=== PATIENT | female | born 1980 | race Caucasian/White ===

== ENCOUNTER → 2017-06-16 | Outpatient (CLI) | payer MEDICAID | LOC: BRMIMAGING 08:49 | PROVIDERS: ATTEND Physician Assistant | DX: K80.20 Calculus of gallbladder without cholecystitis without obstruction (principal) | CPT/HCPCS: 76705-PO ==

== ENCOUNTER 2017-07-10 08:26 | Day surgery (SDC) | payer MEDICAID ==
--- NOTE | 2017-07-10 07:12 | PDHPUP ---
History & Physical Update H&P update statement: This history and physical update is based on an assessment of the patient which was completed after admission or registration (within 24 hours), but prior to the surgery/procedure. H&P update: H&P reviewed & patient examined, no change in patient's condition since H&P completed
[2017-07-10] MEDS ORDERED: LR 1,000 ML IV ONE (08:39)
[2017-07-10] MEDS ORDERED: LIDOCAINE 1% 2 ML INJ ID PRN (08:39)
[2017-07-10] MEDS ORDERED: ceFAZolin 2 GM/SWFI 2 GM/20 ML SYR IVP ONE (08:39)
[2017-07-10] MEDS ORDERED: MIDAZOLAM 2 MG/2 ML VIAL IVP ONE (09:11)
--- NOTE | 2017-07-10 09:12 | PDANEPAE ---
ANE History of Present Illness cholelithilasis ANE Past Medical History - Cardiovascular History Hx Hypertension: No Hx Arrhythmias: No Hx Chest Pain: No Hx Coronary Artery / Peripheral Vascular Disease: No Hx CHF / Valvular Disease: No Hx Palpitations: No - Pulmonary History Hx COPD: No Hx Asthma/Reactive Airway Disease: No Hx Recent Upper Respiratory Infection: No Hx Oxygen in Use at Home: No Hx Sleep Apnea: No Sleep Apnea Screening Result - Last Documented: Negative - Neurologic History Hx Cerebrovascular Accident: No Hx Seizures: No Hx Dementia: No - Endocrine History Hx Diabetes: No - Renal History Hx Renal Disorders: No - Liver History Hx Hepatic Disorders: No - Neurological & Psychiatric Hx Hx Neurological and Psychiatric Disorders: Yes Neurological / Psychiatric History Comment: MILD DEPRESSION - Cancer History Hx Cancer: Yes Cancer History Comment: PRE CANCER CERVICAL POLYP - Congenital Disorder History Hx Congenital Disorders: No - GI History Hx Gastrointestinal Disorders: Yes Gastrointestinal History Comment: IBS, FREQUENT UTI'S - Other Health History Other Health History: NONE - Chronic Pain History 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) - Surgical History Prior Surgeries: none ANE Review of Systems Review of Systems: - Exercise capacity METS (RN): 4 METS ANE Patient History - Allergies Allergies/Adverse Reactions: Latex, Natural Rubber Allergy (Severe, Verified 07/07/17 12:50) Dyspnea - Home Medications Home Medications: Dexedrine 09/06/15 [Last Taken Unknown] Wellbutrin Sr 09/06/15 [Last Taken Unknown] CYCLOBENZAPRINE HCL [Flexeril] 07/07/17 [Last Taken Unknown] Gabapentin 07/07/17 [Last Taken Unknown] Niacin 07/07/17 [Last Taken Unknown] Percocet 7.5-325 mg Tablet 07/07/17 [Last Taken Unknown] Trimethoprim 07/07/17 [Last Taken Unknown] - NPO status NPO Since - Liquids (Date): 07/09/17 NPO Since - Liquids (Time): 23:55 NPO Since - Solids (Date): 07/09/17 NPO Since - Solids (Time): 23:30 - Smoking Hx Smoking Status: Light smoker - Family Anes Hx Family Hx Anesthesia Complications: none ANE Labs/Vital Signs - Vital Signs Vital Signs: reviewed preoperatively; see RN documention for details Blood Pressure: 112/77 Heart Rate: 61 Respiratory Rate: 16 O2 Sat (%): 96 Height: 170.18 cm Weight: 104.326 kg ANE Physical Exam - Airway Neck exam: FROM Mallampati Score: Class 1 Mouth exam: normal dental/mouth exam - Pulmonary Pulmonary: no respiratory distress - Cardiovascular Cardiovascular: regular rate and rhythym - ASA Status ASA Status: II ANE Anesthesia Plan Anesthesia Plan: general endotracheal anesthesia
[2017-07-10] MEDS ORDERED: LIDOCAINE 2% 5 ML SDV ONE (09:14)
[2017-07-10] MEDS ORDERED: DEXAMETHASONE 4 MG/ML VIAL ONE (09:14)
[2017-07-10] MEDS ORDERED: ROCURONIUM 50 MG/5 ML VIAL ONE (09:14)
[2017-07-10] MEDS ORDERED: fentaNYL 100 MCG/2 ML INJ ONE ×4 (09:14→11:43)
[2017-07-10] MEDS ORDERED: ONDANSETRON 4 MG/2 ML VIAL ONE (09:14)
[2017-07-10] MEDS ORDERED: PROPOFOL 200 MG/20 ML VIAL ONE ×2 (09:15→10:29)
[2017-07-10] MEDS ORDERED: BUPIVACAINE 0.5% 30 ML SDV ONE (09:46)
[2017-07-10] MEDS ORDERED: OXYCODONE/APAP 5/325 TAB PO PRN (10:19)
[2017-07-10] MEDS ORDERED: HYDROmorphONE/DILAUDID 1 MG/ML INJ IVP PRN (10:19)
[2017-07-10] MEDS ORDERED: PROMETHAZINE HCL 25 MG/ML INJ IVP PRN (10:19)
[2017-07-10] MEDS ORDERED: ONDANSETRON 4 MG/2 ML VIAL IVP PRN (10:19)
[2017-07-10] MEDS ORDERED: fentaNYL 100 MCG/2 ML INJ IVP PRN (10:19)
[2017-07-10] MEDS ORDERED: NALOXONE HCL 0.4 MG/ML INJ IVP PRN (10:19)
[2017-07-10] MEDS ORDERED: SUGAMMADEX SODIUM 200 MG/2 ML VIAL IVP ONE (10:30)
--- NOTE | 2017-07-10 10:56 | POSTOPPROG ---
Post Op Note Date of Operation: 07/10/17 Surgeon: Terrell De Jesus Dictating Machine Mechanic: Arturo Anesthesiologist: Adithya Anesthesia: GET(General Endotracheal) Pre-op Diagnosis: Cholecystitis, cholelithiasis Post-op Diagnosis: same Indication: pain Procedure: Lap cholecystectomy Findings: Stones Inf/Abcess present in the surg proc area at time of surgery?: No EBL: Minimal Specimen(s): Gall Bladder
--- NOTE | 2017-07-10 10:58 | POSTANESTH ---
Post Anesthetic Evaluation Cardiovascular Status: Normal, Stable Respiratory Status: Normal, Stable Level of Consciousness/Mental Status: Can Participate in Eval Pain Control: Adequate, Prn Tx Ordered Nausea/Vomiting Control: Adequate, Prn Tx Ordered Complications Possibly Related to Anesthesia: None Noted
[2017-07-10 11:23] VITALS: TEMP 97.3
[2017-07-10] MEDS ORDERED: OXYCODONE/APAP 5/325 TAB ONE (11:35)
[2017-07-10 13:33] VITALS: BP 105/58; PULSE 67; RESP 14; O2SAT 98
--- NOTE | 2017-07-12 13:08 | GOP ---
[f rep st] OPERATIVE REPORT DATE OF OPERATION: 07/10/2017 SURGEON: Terrell De Jesus MD OVERWEAVER: Юлия Castillo P.A.-C. PREOPERATIVE DIAGNOSIS: Chronic cholecystitis, cholelithiasis. POSTOPERATIVE DIAGNOSIS: Chronic cholecystitis, cholelithiasis. PROCEDURE PERFORMED: Laparoscopic cholecystectomy, FINDINGS: Patient was found to have a thickened gallbladder with multiple stones completely covered with adhesions. ESTIMATED BLOOD LOSS: Negligible. DESCRIPTION OF PROCEDURE: The patient was taken to the operating room where she received satisfactor y general endotracheal anesthesia, placed in supine position, prepped and draped in the usual sterile fashion. An infraumbilical incision was made. Veress needle was inserted. Pneumoperitoneum was es tablished. Trocar was introduced. Laparoscope introduced, adequate visualization was obtained and 3 other trocars were placed in the upper abdomen under direct vision. The gallbladder was covered wit h adhesions. These were taken down with electrocautery. The gallbladder was elevated up. Cystic tr iangle was carefully exposed after taking down all the adhesions. The cystic duct and cystic artery were dissected free. A good clear view was obtained. Both structures were multiply hemoclipped and divided with care to avoid injury to the common duct. Peritoneum of the gallbladder was incised and the gallbladder was dissected free from the bed and hepatic fossa and extracted through the upper mid line port site. Hemostasis was assured. The wound was irrigated, trocars removed under direct visio n. Trocar sites were closed with 0 Vicryl for the fascia, 4-0 Monocryl subcuticular stitch for skin. All layers infiltrated with 0.5% Marcaine. Wounds were infiltrated with Marcaine ____. /[id number]/MODL
== END 2017-07-10 13:49 | disposition home or self-care (01) ==
LOC: FSGY 08:26
PROVIDERS: ATTEND Surgery
PROC: 0FT44ZZ Resection of Gallbladder, Percutaneous Endoscopic Approach (ICD-10-PCS; principal; 2017-07-10 10:00)
DX: K80.10 Calculus of gallbladder with chronic cholecystitis without obstruction (principal); K58.9 Irritable bowel syndrome, unspecified; Z91.040 Latex allergy status
CPT/HCPCS: J0690; J1100; J2250; J2405; J2704; J3010